=== PATIENT | female | born 1995 | race African-American/Black ===

== ENCOUNTER 2019-02-16 14:35 | Emergency (ER) | payer OTHER ==
[~2019-02-16] VITALS: Ht 177.8 cm; Wt 72.6 kg
[2019-02-16] MEDS ORDERED: ADDERALL 30 MG30 MG ORAL (15:11)
[2019-02-16] MEDS ORDERED: TRIAMCINOLONE A15 GM TP (15:11)
[2019-02-16 15:29] LABS: APPEARANCE,URINE CLOUDY; BILIRUBIN, URINE NEGATIVE (NEGATIVE); COLOR,URINE PALE YELLOW; EOSINOPHILS % (AUTO) 0.1 % (0.0-3.0); GLUCOSE, URINE (UA) NEGATIVE (NEGATIVE); HEMATOCRIT 41.4 % (37.0-47.0); HEMOGLOBIN 14.1 G/DL (12.0-16.0); KETONES,URINE NEGATIVE (NEGATIVE); LEUKOCYTE ESTERASE ,URINE 3+ (NEGATIVE); LYMPHOCYTES % (AUTO) 13.8 % (20.0-45.0); MEAN CORPUSCULAR VOLUME 89 FL (80-99); MONOCYTES % (AUTO) 9.6 % (1.0-10.0); NEUTROPHILS % (AUTO) 75.6 % (45.0-75.0); NITRITE,URINE NEGATIVE (NEGATIVE); PH,URINE 6 (4.5-8.0); PLATELET COUNT 251 K/UL (150-450); PROTEIN,URINE 2+ (NEGATIVE); RED BLOOD COUNT 4.64 M/UL (4.20-5.40); UROBILINOGEN,URINE NORMAL MG/DL (0.0-1.0); WHITE BLOOD COUNT 10.9 K/UL (4.8-10.8)
--- NOTE | 2019-02-16 15:31 | NUR ---
ED Nurse Note: pt toelrates iv and labs well urine sent. no meds ordered. pt aware to remain npo at this time. pt restless with pain denies diarrhea but does have nausea with pain. relates no drug use but does admit to etoh use yest morniing and able to eat pizza yest .
[2019-02-16 15:37] LABS: ANION GAP 9 mmol/L (5-15); BLOOD UREA NITROGEN 10 mg/dL (7-18); CALCIUM 9.4 MG/DL (8.5-10.1); CARBON DIOXIDE 26 MMOL/L (21-32); CHLORIDE 101 MMOL/L (98-107); CREATININE 0.9 MG/DL (0.55-1.30); SODIUM 136 MMOL/L (136-145)
--- NOTE | 2019-02-16 15:40 | Emergency Room Report ---
History of Present Illness General Chief Complaint: Abdominal Pain Source: Patient (Yulisa Yepez) Present Illness HPI 23-year-old female presents to the emergency department complaining of 10 out of 10 severity right upper quadrant pain that has been progressive from intermittent in nature to constant in character over the past 3 days. Patient reports chills and intermittent sweating. Patient denies measured fever. Patient denies vomiting but states she has had significant nausea and decreased appetite. Patient reports that eating makes her symptoms worsen. Patient also reports some right-sided low back pain she denies suspicion of states she has an IUD no relieving factors at this time. Denies constipation or diarrhea. Denies blood in the stool or black tarry stools. (Yluisa Yepez) Allergies: Coded Allergies: Cashew (Verified Allergy, Unknown, 02/16/19) Uncoded Allergies: HAIR DYE (Allergy, Unknown, 02/16/19) Patient History Past Medical History: see triage record Past Surgical History: none Pertinent Family History: none Last Menstrual Period: 01/27/2019 Now: No Immunizations: UTD Reviewed Nursing Documentation: PMH: Agreed; PSxH: Agreed (Yulisa Yepez) Nursing Documentation-PMH Past Medical History: No History, Except For (Yulisa Yepez) Review of Systems All Other Systems: negative except mentioned in HPI (Yulisa Yepez) Physical Exam Vital Signs Date Time Temp Pulse Resp B/P (MAP) Pulse Ox O2 Delivery O2 Flow Rate FiO2 02/16/19 14:48 98.6 98 16 129/67 (87) 99 Room Air Sp02 EP Interpretation: reviewed, normal General Appearance: alert, GCS 15, non-toxic, moderate distress Head: normocephalic, atraumatic Eyes: bilateral eye normal inspection, bilateral eye PERRL ENT: hearing grossly normal, normal voice Neck: full range of motion Respiratory: lungs clear, normal breath sounds, speaking full sentences Cardiovascular #1: regular rate, rhythm Gastrointestinal: normal bowel sounds, soft, non-distended, no guarding, tenderness - RUQ TTP Genitourinary: normal inspection, CVA tenderness (R) Musculoskeletal: back normal, gait/station normal, normal range of motion, non- tender Neurologic: alert, oriented x3, responsive, motor strength/tone normal, sensory intact, speech normal, grossly normal Psychiatric: judgement/insight normal Skin: normal color, no rash, warm/dry, well hydrated Lymphatic: no adenopathy (Yulisa Yepez) Medical Decision Making PA Attestation Dr. Lopez is my supervising Physician whom patient management has been discussed with. (Yulisa Yepez) Diagnostic Impression: Primary Impression: Pyelonephritis ER Course 23-year-old female presents to the emergency department complaining of 10 out of 10 severity right upper quadrant pain that has been progressive from intermittent in nature to constant in character over the past 3 days. Patient reports chills and intermittent sweating. Patient denies measured fever. Patient denies vomiting but states she has had significant nausea and decreased appetite. Patient reports that eating makes her symptoms worsen. Patient also reports some right-sided low back pain she denies suspicion of states she has an IUD no relieving factors at this time. Denies constipation or diarrhea. Denies blood in the stool or black tarry stools. Ddx considered but are not limited to Diverticulitis, acute appy, diarrhea,UC, PUD, GE, pancreatitis, gallstone, ovarian torsion, ectopic , PID tubo-ovarian abscess. Vital signs: are WNL, pt. is afebrile H&PE are most consistent with r/o gallbladder/stone pathology ORDERS: -CBC: Wbc 10.9 otherwise unremarkable -CMP: unremarkable - LIPASE: unremarkable -UA: moderate bacteria with elevation in inflammatory markers--POSITIVE FOR UTI -URINE HCG:Negative -US abdomen complete: " mild hydro of the right kidney" -per official radiology report- Please see report for specific details. - CT Abdomen without contrast: r/o renal calculi.--negative for stones ED INTERVENTIONS: -1 Liter NS -4mg IV Morphine -1g Rocephin IV -Toradol IV PT. reports pain is controlled. d/w pt. option of being admitted for continued abx. Pt. reports that she feels well enough to be treated as an outpatient. PT. given strict ED return precautions. DISCHARGE: At this time pt. is stable for d/c to home. Will provide printed patient care instructions, and any necessary prescriptions. Care plan and follow up instructions have been discussed with the patient prior to discharge. Labs Test 02/16/19 15:10 White Blood Count 10.9 K/UL (4.8-10.8) Red Blood Count 4.64 M/UL (4.20-5.40) Hemoglobin 14.1 G/DL (12.0-16.0) Hematocrit 41.4 % (37.0-47.0) Mean Corpuscular Volume 89 FL (80-99) Mean Corpuscular Hemoglobin 30.4 PG (27.0-31.0) Mean Corpuscular Hemoglobin Concent 34.0 G/DL (32.0-36.0) Red Cell Distribution Width 12.0 % (11.6-14.8) Platelet Count 251 K/UL (150-450) Mean Platelet Volume 5.7 FL (6.5-10.1) Neutrophils (%) (Auto) 75.6 % (45.0-75.0) Lymphocytes (%) (Auto) 13.8 % (20.0-45.0) Monocytes (%) (Auto) 9.6 % (1.0-10.0) Eosinophils (%) (Auto) 0.1 % (0.0-3.0) Basophils (%) (Auto) 1.0 % (0.0-2.0) Urine Color Pale yellow Urine Appearance Cloudy Urine pH 6 (4.5-8.0) Urine Specific Sund[place] 1.005 (1.005-1.035) Urine Protein 2+ (NEGATIVE) Urine Glucose (UA) Negative (NEGATIVE) Urine Ketones Negative (NEGATIVE) Urine Blood 4+ (NEGATIVE) Urine Nitrite Negative (NEGATIVE) Urine Bilirubin Negative (NEGATIVE) Urine Urobilinogen Normal MG/DL (0.0-1.0) Urine Leukocyte Esterase 3+ (NEGATIVE) Urine RBC 2-4 /HPF (0 - 2) Urine WBC Tntc /HPF (0 - 2) Urine Squamous Epithelial Cells Moderate /LPF (NONE/OCC) Urine Bacteria Many /HPF (NONE) Urine HCG, Qualitative Negative (NEGATIVE) Sodium Level 136 MMOL/L (136-145) Potassium Level 4.0 MMOL/L (3.5-5.1) Chloride Level 101 MMOL/L (98-107) Carbon Dioxide Level 26 MMOL/L (21-32) Anion Gap 9 mmol/L (5-15) Blood Urea Nitrogen 10 mg/dL (7-18) Creatinine 0.9 MG/DL (0.55-1.30) Estimat Glomerular Filtration Rate > 60 mL/min (>60) Glucose Level 93 MG/DL (74-106) Calcium Level 9.4 MG/DL (8.5-10.1) Total Bilirubin 0.6 MG/DL (0.2-1.0) Aspartate Amino Transf (AST/SGOT) 21 U/L (15-37) Alanine Aminotransferase (ALT/SGPT) 41 U/L (12-78) Alkaline Phosphatase 48 U/L (46-116) Total Protein 7.9 G/DL (6.4-8.2) Albumin 4.0 G/DL (3.4-5.0) Globulin 3.9 g/dL Albumin/Globulin Ratio 1.0 (1.0-2.7) Lipase 110 U/L (73-393) (Yulisa Yepez) ER Course Urine culture result shows E. coli. Patient placed on Bactrim. Urine culture shows resistance to Bactrim. I attempted to call the patient with number on file however it is a wrong number. Certified letter sent (Luis Lopez MD) CT/MRI/US Diagnostic Results CT/MRI/US Diagnostic Results #1: Imaging Test Ordered: US Abdomen Impression " mild hydro of the right kidney" -per official radiology report- Please see report for specific details. CT/MRI/US Diagnostic Results #2: Imaging Test Ordered: CT Abdomen and Pelvis NON Con Impression " No evidence of renal calculi, mild hydro of the right kidney" -per official radiology report- Please see report for specific details. (Yulisa Yepez) Last Vital Signs Date Time Temp Pulse Resp B/P (MAP) Pulse Ox O2 Delivery O2 Flow Rate FiO2 02/16/19 15:27 98 16 Room Air 02/16/19 14:48 98.6 129/67 (87) 99 Status: improved (Yulisa Yepez) Disposition: HOME, SELF-CARE Condition: Stable Scripts Phenazopyridine Hcl* (PYRIDIUM*) 100 Mg Tablet 100 MG ORAL THREE TIMES A DAY for 3 Days, #9 TAB Prov: Yulisa Yepez 02/16/19 Trimethoprim/Sulfamethoxazole 160/800* (BACTRIM DS TABLET*) 1 Each Tablet 1 TAB ORAL TWICE A DAY for 14 Days, #28 TAB Prov: Yulisa Yepez 02/16/19 Tramadol Hcl* (ULTRAM*) 50 Mg Tablet 50 MG ORAL Q6H PRN for For Pain, #10 TAB 0 Refills Prov: Yulisa Yepez 02/16/19 Departure Forms: Return to Work Return to Work Date: Feb 20, 2019 Work Restrictions: None Other Restrictions: May return Sooner if Symptoms have resolved. Return to Full Activity: Feb 20, 2019 Patient Instructions: Pyelonephritis, Adult, [id number] Additional Instructions: Take medications as directed. Follow up with a Primary Care Provider in 3-5 days, even if your symptoms have resolved. --Please review list of primary care clinics, if you do not already have a primary care provider Return sooner to ED if new symptoms occur, or current symptoms become worse. Do not drink alcohol, drive, or operate heavy machinery while taking Tramadol as this may cause drowsiness. - Please note that this Emergency Department Report was dictated using [employer] refrigerated cdl truck driver technology software, occasionally this can lead to erroneous entry secondary to interpretation by the dictation equipment. Yulisa Yepez Feb 16, 2019 15:40 Luis Lopez MD Feb 19, 2019 11:35
[2019-02-16 15:42] LABS: ALANINE AMINOTRANSFERASE 41 U/L (12-78); ALKALINE PHOSPHATASE 48 U/L (46-116); ASPARTATE AMINO TRANSFERASE 21 U/L (15-37); BILIRUBIN,TOTAL 0.6 MG/DL (0.2-1.0)
[2019-02-16] MEDS ORDERED: Morphine Sulfate 4mg/ml Inj (IV USE ONLY) IVP ONE (15:45)
--- NOTE | 2019-02-16 15:59 | NUR ---
ED Nurse Note: us tech here to perform abd us. pt states pain much improved. aware to remain NPO at this time
[2019-02-16] MEDS ORDERED: cefTRIAXone 1 GM in NS 55 ML IVPB ONE (17:00)
[2019-02-16] MEDS ORDERED: Isovue-300 100ml vial INJ PRN (17:00)
--- NOTE | 2019-02-16 17:28 | Diagnostic Imaging Report ---
Indication: Right flank pain and hematuria Technique: Spiral acquisitions obtained through the abdomen and pelvis. No oral or IV contrast utilized, per urinary stone protocol. Multiplanar reconstructions were generated. Total dose length product 727.79 mGycm. CTDIvol(s) 12.33 mGy. Dose reduction achieved using automated exposure control Comparison: none Findings: There is suggestion of very subtle slight infiltration of the perinephric fat on the right, particularly adjacent to the lower pole. No renal or ureteral calculi, hydronephrosis, or hydroureter demonstrated. Lack of IV contrast limits assessment of the renal parenchyma. No gross renal parenchymal mass or cyst demonstrated. Lack of IV contrast limits assessment of the other solid organs. The liver, gallbladder, bile ducts, pancreas, spleen, adrenals are all unremarkable. No retroperitoneal or mesenteric mass or adenopathy. No pelvic mass or adenopathy. The uterus contains an intrauterine device which appears appropriately positioned. The ovaries appear unremarkable. There is questionably trace free fluid in the pelvis. No evidence of diverticulosis or diverticulitis. The appendix is normal. No small bowel distention. No free or loculated intraperitoneal gas demonstrated. Distal esophagus, stomach, duodenum are unremarkable. The included lung bases are clear. The bones are unremarkable Impression: Equivocal slight infiltration of the perinephric fat on the right; if real could indicate mild pyelonephritis changes. Correlate with clinical and laboratory findings. Contrast CT may be helpful if clinically indicated Negative for evidence of obstructive uropathy or urinary stone disease Questionable trace free pelvic fluid, presumably physiologic if real Intrauterine device appears to be in good position The CT scanner at [facility] is accredited by the [employer] and the scans are performed using protocols designed to limit radiation exposure to as low as reasonably achievable to attain images of sufficient resolution adequate for diagnostic evaluation.
--- NOTE | 2019-02-16 17:35 | Diagnostic Imaging Report ---
Indication: Abdominal pain Technique: Porras-scale and duplex images of the upper abdomen were obtained Comparison: none Findings: Gallbladder is unremarkable, without stones, wall thickening, nor pericholecystic fluid. Sonographic Oneill's sign is negative. Common bile duct measures 2 mm in diameter. No intrahepatic biliary ductal dilatation. Liver demonstrates normal echogenicity, no focal abnormality. Portal vein and hepatic veins are patent. Pancreas is unremarkable. Spleen is unremarkable. Left kidney measures 12.8 cm in length. Right kidney measures 11.7 cm length. Both kidneys demonstrate normal echogenicity. There is equivocal slight fullness to the right renal collecting system. Left renal collecting system appears unremarkable No focal abnormality . Non-aneurysmal abdominal aorta . Impression: Equivocal slight fullness of the right renal collecting system, could indicate inflammation or mild downstream obstructive process Otherwise unremarkable
--- NOTE | 2019-02-16 17:49 | NUR ---
ED Nurse Note: pt remains without increased pain. ok to have po fluids per hernesto suazo. pt with abx infusion. tolerates ivf well. awaiting dispo.
[2019-02-16] MEDS ORDERED: PHENAZOPYRIDIN100 MG ORAL (17:58)
[2019-02-16] MEDS ORDERED: BACTRIM DS TAB1 EAC1 ORAL (17:58)
[2019-02-16] MEDS ORDERED: TRAMADOL HCL50 MG ORAL (17:58)
[2019-02-16] MEDS ORDERED: Ketorolac 30mg Inj IV SCH (18:15)
[2019-02-16] MEDS ORDERED: Ketorolac 30mg Inj ONE (18:31)
--- NOTE | 2019-02-16 18:40 | NUR ---
ER DISCHARGE NOTE: Patient is cleared to be discharged per ERMD, pt is aox4, on room air, with stable vital signs. pt was given dc and prescription instructions, pt was able to verbalize understanding, pt id band and iv site removed without complications. pt is able to ambulate with steady gait. pt took all belongings. pt given work note. pt medicated for slight increase in pain. amb steady gait to brp.
[2019-02-16 18:44] VITALS: BP 125/64
== END 2019-02-16 18:45 | disposition home or self-care (01) ==
LOC: EMR 17:10
DX: N12 Tubulo-interstitial nephritis, not specified as acute or chronic (principal); Z97.5 Presence of (intrauterine) contraceptive device
CPT/HCPCS: 36415; 74176; 76700; 80053; 81003; 81025; 83690; 85025; 87086; 87181; 96361; 96365; 96375; 99284; J0696; J1885; J2270